=== PATIENT | male | born 1955 | race Caucasian/White ===

== ENCOUNTER 2019-10-25 14:00 | Emergency (ER) | payer OTHER ==
[~2019-10-25] VITALS: Ht 172.7 cm; Wt 87.1 kg
[2019-10-25 15:05] LABS: BASO % 0.4 % (0.0-1.0); EOS % 0.2 % (1.0-4.0); HEMATOCRIT 47.2 % (42.0-52.0); LYMPH # 1.5 10*3/uL (1.3-4.4); LYMPH % 14.7 % (27.0-41.0); MEAN CELL VOLUME 85.8 fl (80.0-94.0); MEAN CORPUSCULAR HGB 29.5 pg (27.0-31.0); MEAN CORPUSCULAR HGB CONC 34.3 g/dl (33.0-37.0); MEAN PLATELET VOLUME 9.2 fl (9.6-12.3); MONO # 0.6 10*3/uL (0.1-1.0); MONO % 6.4 % (3.0-9.0); NEUT # 7.7 10*3/uL (2.3-7.9); NEUT % 77.9 % (47.0-73.0); PLATELET COUNT AUTOMATED 309 10*3/uL (130-400); RED CELL DISTRI WIDTH 13.3 % (0-14.5); WHITE BLOOD COUNT 9.9 10*3/uL (4.8-10.8)
[2019-10-25 15:16] LABS: ACT PARTIAL THROMBO TIME 24.2 SECONDS (20.0-32.1)
[2019-10-25 15:21] LABS: ALBUMIN 3.9 gm/dl (3.1-4.5); ALKALINE PHOSPHATASE 186 U/L (45-117); BUN 16 mg/dl (7-24); CHLORIDE 103 mmol/L (98-107); CREATININE 1.53 mg/dL (0.70-1.30); LIPASE 89 U/L (73-393); POTASSIUM 4.4 mmol/L (3.5-5.1); SGOT/AST 17 IU/L (3-35); SGPT/ALT 33 U/L (12-78); SODIUM 132 mmol/L (136-145); TOTAL PROTEIN 7.9 gm/dL (6.4-8.2)
[2019-10-25 15:22] LABS: TROPONIN I < 0.015 ng/ml (<0.045)
== END 2019-10-25 18:33 | disposition home or self-care (01) ==
LOC: ED 14:00
PROVIDERS: Nurse Practitioner Family
DX: I49.8 Other specified cardiac arrhythmias (principal); I10 Essential (primary) hypertension; E11.9 Type 2 diabetes mellitus without complications

== ENCOUNTER → 2022-04-21 | Outpatient (CLI) | payer MEDICARE | END | disposition home or self-care (01) | LOC: RESCLI 15:14 | PROVIDERS: ATTEND Internal Medicine | DX: E11.9 Type 2 diabetes mellitus without complications (principal); M10.9 Gout, unspecified; F32.9 Major depressive disorder, single episode, unspecified; E78.5 Hyperlipidemia, unspecified; J32.9 Chronic sinusitis, unspecified; I25.10 Atherosclerotic heart disease of native coronary artery without angina pectoris; I10 Essential (primary) hypertension; K50.90 Crohn's disease, unspecified, without complications; Z98.890 Other specified postprocedural states; Z82.49 Family history of ischemic heart disease and other diseases of the circulatory system; Z79.84 Long term (current) use of oral hypoglycemic drugs; Z79.82 Long term (current) use of aspirin; Z79.899 Other long term (current) drug therapy ==

== ENCOUNTER → 2023-04-26 | Outpatient (CLI) | payer MEDICARE, OTHER | END | disposition home or self-care (01) | LOC: RESCLI 15:33 | PROVIDERS: ATTEND Student in an Organized Health Care Education/Training Program | DX: I25.10 Atherosclerotic heart disease of native coronary artery without angina pectoris (principal); J32.9 Chronic sinusitis, unspecified; K50.90 Crohn's disease, unspecified, without complications; M10.9 Gout, unspecified; F32.9 Major depressive disorder, single episode, unspecified; E78.5 Hyperlipidemia, unspecified; E11.9 Type 2 diabetes mellitus without complications; K21.9 Gastro-esophageal reflux disease without esophagitis; I50.9 Heart failure, unspecified; G47.00 Insomnia, unspecified; Z98.890 Other specified postprocedural states; Z82.49 Family history of ischemic heart disease and other diseases of the circulatory system; Z79.899 Other long term (current) drug therapy; Z79.4 Long term (current) use of insulin; Z79.02 Long term (current) use of antithrombotics/antiplatelets ==